=== PATIENT | male | born 1975 | race African-American/Black ===

== ENCOUNTER 2017-12-15 23:51 | Emergency (ER) | payer OTHER ==
[2017-12-16 00:16] VITALS: BP 130/75
--- NOTE | 2017-12-16 00:20 | ED GI/GU/ABDOMINAL COMPLAINT ---
History of Present Illness General Chief Complaint: General Adult Stated Complaint: "I WOULD LIKE TO TALK TO A NURSE, PERSONAL THINGS" Source: patient Exam Limitations: no limitations Vital Signs & Intake/Output Vital Signs & Intake/Output Vital Signs Date Time Temp Pulse Resp B/P B/P Pulse O2 O2 Flow FiO2 Mean Ox Delivery Rate 12/16 0045 Room Air 12/16 0016 97.8 59 22 130/75 98 Allergies Coded Allergies: No Known Allergies (12/16/17) Reconcile Medications Augmentin (Augmentin 500-125 Tablet) 500 MG-125 MG TABLET 1 TAB PO BID PRN INFECTION Augmentin (Augmentin 500-125 Tablet) 500 MG-125 MG TABLET 1 TAB PO BID INFECTION Meloxicam (Mobic) 15 MG TABLET 1 TAB PO DAILY PAIN Meloxicam (Mobic) 15 MG TABLET 1 TAB PO DAILY PRN PAIN Mupirocin Calcium (Bactroban) 2 % CREAM..G. 1 YUE TOP TID BALANITIS apply to affected area(s) Triage Note: CUT PENIS IN ZIPPER 2 DAYS AGO, IN UNCIRCUMSIZED AREA CAUSES INCREASED PAIN WITH ERECTION Triage Nurses Notes Reviewed? yes Duration: constant Timing: recent history Quality/Severity: moderate Severity Numbers: 5 Radiation: no radiation HPI: Patient is a 42-year-old male who presents emergency room stating that he is uncircumcised and on Friday 3 days ago patient was sipping up his pants where he noted his foreskin to get embedded to the zipper where he immediately tried to unzip his pants where he immediately had severe pain and mild bleeding that resolved that day. Patient states that he has pain upon retraction of his foreskin and when having an erection however he can retract the entire foreskin At rest he has no pain patient has been applying [id number] topical antibiotic cream to the area. Denies any discharge denies any dysuria. Tetanus is up-to-date. (Radu Fernandez) Past History Travel History Traveled to [place] past 21 day No Medical History Any Pertinent Medical History? none Neurological: NONE EENT: NONE Cardiovascular: NONE Gastrointestinal: NONE Hepatic: NONE Renal: NONE Musculoskeletal: NONE Psychiatric: NONE Endocrine: NONE Surgical History Surgical History: non-contributory Psychosocial History What is your primary language Yoruba Tobacco Use: Never used Family History Hx Contributory? No (Radu Fernandez) Review of Systems Review of Systems Constitutional: Reports: no symptoms. EENTM: Reports: no symptoms. Respiratory: Reports: no symptoms. Cardiovascular: Reports: no symptoms. GI: Reports: see HPI. Genitourinary: Reports: no symptoms. Musculoskeletal: Reports: no symptoms. Skin: Reports: see HPI. Neurological/Psychological: Reports: no symptoms. Hematologic/Endocrine: Reports: see HPI, bleeding. Immunologic/Allergic: Reports: no symptoms. All Other Systems: Reviewed and Negative (Radu Fernandez) Physical Exam Physical Exam General Appearance: no apparent distress, alert, comfortable Head: atraumatic Eyes: Bilateral: normal appearance. Ears, Nose, Throat, Mouth: moist mucous membrane Neck: normal inspection Respiratory: normal breath sounds Gastrointestinal: normal bowel sounds, soft, non-tender Extremities: normal range of motion Core Measures ACS in differential dx? No Sepsis Present: No Sepsis Focused Exam Completed? No (Radu Fernandez) Progress Differential Diagnosis: STD, testicular torsion, ureterolithiasis, urinary retention, urethritis, UTI/pyelo Plan of Care: Differential diagnosis includes paraphimosis phimosis. PENILE laceration, balanitis On examination no signs of infection, patient was able to retract foreskin with mild tenderness which there was a minimal piece of foreskin to the underside of the penile shaft with attachment to the PREPUCE No signs of paraphimosis or phimosis no signs of active bleeding patient was strongly advised to follow up with urology he'll prophylactically be administered antibiotics upon discharge patient looks well no apparent distress and will comply discharge instructions and had no questions Initial ED EKG: none (Radu Fernandez) Departure Departure Disposition: HOME OR SELF CARE Condition: Stable Clinical Impression Primary Impression: Penile adhesion Secondary Impressions: Penile pain Referrals: Radha VAZQUEZ,Jeramy Barbosa MD,Rudy Baltazar (PCP/Family) Additional Instructions: As discussed begin the prescription of meloxicam for pain and inflammation and begin the prescription of Augmentin to prevent infection, first thing tomorrow please follow-up established urologist for further evaluation treatment if symptoms worsen or she develop new concerning symptoms such as infection return to emergency room. Prescriptions waiting at [facility] Departure Forms: Customer Survey General Discharge Information Prescriptions: Current Visit Scripts Meloxicam (Mobic) 1 TAB PO DAILY #10 TAB Augmentin (Augmentin 500-125 Tablet) 1 TAB PO BID PRN INFECTION #14 TAB Mupirocin Calcium (Bactroban) 1 YUE TOP TID #30 GM apply to affected area(s) Augmentin (Augmentin 500-125 Tablet) 1 TAB PO BID #14 TAB Meloxicam (Mobic) 1 TAB PO DAILY PRN PAIN #10 TAB (Radu Fernandez) PA/ENTRY LEVEL BUSINESS ANALYST Co-Sign Statement Statement: ED Attending supervision documentation- [] I saw and evaluated the patient. I have also reviewed all the pertinent lab results and diagnostic results. I agree with the findings and the plan of care as documented in the PA's/ENTRY LEVEL BUSINESS ANALYST's documentation. [X] I have reviewed the ED Record and agree with the PA's/ENTRY LEVEL BUSINESS ANALYST's documentation. [] Additions or exceptions (if any) to the PAs/ENTRY LEVEL BUSINESS ANALYST's note and plan are summarized below: [] (Shai VAZQUEZ,Brian Cardoso)
[2017-12-16] MEDS ORDERED: AUGMENTIN 500-1 EACH PO ×2 (00:32→00:34)
[2017-12-16] MEDS ORDERED: MOBIC15 M1 PO ×2 (00:32→00:34)
[2017-12-16] MEDS ORDERED: BACTROBAN15 GM TOP (00:33)
== END 2017-12-16 00:46 ==
LOC: ERH 23:51
DX: S30.812A Abrasion of penis, initial encounter (principal); X58.XXXA Exposure to other specified factors, initial encounter; Y92.9 Unspecified place or not applicable; Y93.9 Activity, unspecified